=== PATIENT | male | born 1985 | race Caucasian/White ===

== ENCOUNTER → 2016-11-19 18:48 | Emergency (ER) | payer SELFPAY ==
[2016-11-19 18:57] VITALS: BP 135/75
--- NOTE | 2016-11-19 23:12 | ED ---
Laceration/Wound HPI - HPI Summary HPI Summary: Patient presents to ED with right thumb laceration to the lateral side of the nail. Superficial wound. Notes he cut the area on a clean kitchen knife approx 2 hours ago. Denies numbness or tingling. Minimal blood loss. Denies color or temperature changes. NV intact. +2 pulses bilaterally. Denies pain. - History of Current Complaint Stated Complaint: RT THUMB LAC Time Seen by Provider: 11/19/16 19:28 Hx Obtained From: Patient Mechanism of Injury: Sharp/Blunt Trauma Onset/Duration: Sudden Onset Aggravating: Movement Alleviating: Compression Timing: Constant Onset Severity: Mild Current Severity: Mild Pain Intensity: 1 Pain Scale Used: 0-10 Numeric Associated Signs & Symptoms: Negative Related Hx: Dominant Hand (Right) - Allergy/Home Medications Allergies/Adverse Reactions: Allergies Allergy/AdvReac Type Severity Reaction Status Date / Time No Known Allergies Allergy Verified 11/19/16 19:15 PMH/Surg Hx/FS Hx/Imm Hx Previously Healthy: Yes - Immunization History Hx Pertussis Vaccination: No Immunizations Up to Date: Unable to Obtain/Confirm Infectious Disease History: No Infectious Disease History: Denies: Traveled Outside the [place] in Last 30 Days - Social History Occupation: Employed Full-time Lives: With Family Alcohol Use: Rare Hx Substance Use: No Substance Use Type: Reports: None Hx Tobacco Use: No Smoking Status (MU): Former Smoker Review of Systems Constitutional: Negative Eyes: Negative Positive: Palpitations Respiratory: Negative Positive: no symptoms reported, see HPI Musculoskeletal: Negative Positive: Other - 2cm laceration to the lateral side of the right thumb. Neurological: Negative Psychological: Normal All Other Systems Reviewed And Are Negative: Yes Physical Exam Triage Information Reviewed: Yes Vital Signs On Initial Exam: Initial Vitals Temp Pulse Resp BP 97.4 F 82 18 135/75 11/19/16 18:53 11/19/16 18:53 11/19/16 18:53 11/19/16 18:53 Vital Signs Reviewed: Yes Appearance: Positive: Well-Appearing, No Pain Distress, Well-Nourished Skin: Positive: Warm, Skin Color Reflects Adequate Perfusion, Other Head/Face: Positive: Normal Head/Face Inspection Eyes: Positive: EOMI, DAVID, Conjunctiva Clear Neck: Positive: Supple, No Lymphadenopathy Respiratory/Lung Sounds: Positive: Clear to Auscultation, Breath Sounds Present Cardiovascular: Positive: Normal, RRR Musculoskeletal: Positive: Normal, Strength/ROM Intact Neurological: Positive: Sensory/Motor Intact, Alert, Oriented to Person Place, Time, Speech Normal Psychiatric: Positive: Normal Procedures - Laceration/Wound Repair 1 Location: Other - hand Description: Linear Laceration/Wound Explored: clean Closure: Skin Adhesive, SteriStrips Layer Closure?: No Sterile Dressing Applied?: No Diagnostics - Vital Signs Vital Signs Temp Pulse Resp BP Pulse Ox 11/19/16 19:15 97.4 F 82 18 135/75 98 11/19/16 18:53 97.4 F 82 18 135/75 - Laboratory Lab Statement: Any lab studies that have been ordered have been reviewed, and results considered in the medical decision making process. Laceration Repair Course/Dx - Course Course Of Treatment: Superficial laceration to the lateral side of the right thumb. Discussed treatment options with patient. Advised to use adhesive d/t superifical wound. Patient agrees. Wound closure with adhesive with 4 steri strips placed. Bandage wrapped. Patient tolerated well. Return precautions given. - Differential Dx Differental Diagnoses: Abrasion, Avulsion, Laceration - Clinical Impression Provider Diagnoses: Laceration Discharge - Discharge Plan Condition: Stable Disposition: HOME Patient Education Materials: Skin Adhesive Care (ED), Steristrips (ED) Referrals: Non Staff,Doctor [Primary Care Provider] - Additional Instructions: Follow up if you develop signs of infection such as fever, redness, warmth, or red streaking up the arm. Continue to keep steri strips dry for 24 hours.
== END | disposition home or self-care (01) ==
LOC: ED 18:48
DX: S61.011A Laceration without foreign body of right thumb without damage to nail, initial encounter (principal); W26.0XXA Contact with knife, initial encounter; Y92.9 Unspecified place or not applicable; Z87.891 Personal history of nicotine dependence
CPT/HCPCS: 12001; 99281